=== PATIENT | female | born 2000 | race Caucasian/White ===

== ENCOUNTER 2019-08-02 17:21 | Emergency (ER) | payer OTHER ==
[2019-08-02] MEDS ORDERED: ONDANSETRON HCL INJ/PF 4 MG/2 ML SDV IV ONE (17:42)
[2019-08-02] MEDS ORDERED: KETOROLAC TROMETHAMINE INJ/PF 30 MG/1 ML SDV IV ONE (17:42)
[2019-08-02] MEDS ORDERED: ACETAMINOPHEN 325 MG TABLET PO ONE (17:42)
[2019-08-02] MEDS ORDERED: NORMAL SALINE 1000 ML 1,000 ML IV ONE (17:42)
--- NOTE | 2019-08-02 17:44 | ER Document Report ---
ED Medical Screen (RME) - General Chief Complaint: Fever Stated Complaint: FEVER/SORE THROAT Time Seen by Provider: 08/02/19 17:29 Mode of Arrival: Ambulatory Information source: Patient Notes: Patient is an otherwise healthy 19-year-old female presenting to the emergency department with complaints of fever, all over body aches, sore throat and generalized weakness that began last night. Patient denies any abdominal pain, dysuria, urinary frequency, vomiting or diarrhea. Patient tachycardic in super track with a heart rate of 128, she is also febrile. She was upgraded from an ROSALIA for to an ROSALIA 3 and moved to a main side bed. Exam: Heart sounds S1-S2 present with no ectopy noted. Throat erythematous with bilateral tonsillar swelling, uvula midline, no evidence of peritonsillar abscess. Skin pale. I have greeted and performed a rapid initial assessment of this patient. A comprehensive ED assessment and evaluation of the patient, analysis of test results and completion of the medical decision making process will be conducted by additional ED providers. I have specifically instructed the patient or family members with the patient to immediately return to any nursing staff should anything change in the patient's condition or with their chief complaint. This medical record was dictated with voice recognizing software. There may be grammatical, syntax errors that are unintended. Physical Exam - Vital signs Vitals: Temp Pulse Resp BP Pulse Ox 103.0 F H 128 H 22 H 116/57 L 95 08/02/19 17:25 08/02/19 17:25 08/02/19 17:25 08/02/19 17:25 08/02/19 17:25 Course - Vital Signs Vital signs: Temp Pulse Resp BP Pulse Ox 103.0 F H 128 H 22 H 116/57 L 95 08/02/19 17:25 08/02/19 17:25 08/02/19 17:25 08/02/19 17:25 08/02/19 17:25
[2019-08-02 18:30] LABS: ABSOLUTE LYMPHOCYTES (AUTO) 0.9 10^3/uL (0.5-4.7); ABSOLUTE MONOCYTES (AUTO) 1.7 10^3/uL (0.1-1.4); ABSOLUTE NEUT (AUTO) 9.4 10^3/uL (1.7-8.2); BASOPHILS % (AUTO) 0.3 % (0-2); HEMATOCRIT 41.2 % (36.0-47.0); HEMOGLOBIN 14.1 g/dL (12.0-15.5); LYMPHOCYTES % (AUTO) 7.2 % (13-45); MEAN CORPUSCULAR HEMOGLOBIN 29.8 pg (27.0-33.4); MEAN CORPUSCULAR HGB CONC 34.2 g/dL (32.0-36.0); MEAN CORPUSCULAR VOLUME 87 fl (80-97); MONOCYTES % (AUTO) 14.4 % (3-13); PLATELET COUNT 187 10^3/uL (150-450); RED BLOOD COUNT 4.73 10^6/uL (3.72-5.28); SEGMENTED NEUTROPHILS % (AUTO) 78.1 % (42-78); TOTAL CELLS COUNTED % (AUTO) 100 %; WHITE BLOOD COUNT 12.1 10^3/uL (4.0-10.5)
[2019-08-02] MEDS ORDERED: DEXAMETHASONE SOD PHOS INJ 10 MG/1 ML VIAL IV ONE (18:34)
[2019-08-02] MEDS ORDERED: CEFTRIAXONE 1 GM/D5W RTU 1 GM/50 ML RTUPB IV ONE (18:35)
--- NOTE | 2019-08-02 18:44 | ER Document Report ---
ED General - General Chief Complaint: Fever Stated Complaint: FEVER/SORE THROAT Time Seen by Provider: 08/02/19 17:29 Mode of Arrival: Ambulatory Notes: 19 year old female arrives with with sore throat and fever today and swollen glands. No known sick contacts. No rash. No stiff neck. - HPI Onset/Duration: Sudden Quality of pain: Achy - Related Data Allergies/Adverse Reactions: No Known Allergies Allergy (Unverified 08/02/19 17:45) Past Medical History - General Information source: Patient - Social History Smoking Status: Unknown if Ever Smoked Family History: None Patient has suicidal ideation: No Patient has homicidal ideation: No Review of Systems - Review of Systems Constitutional: Fever. denies: No symptoms reported EENT: See HPI, Throat pain, Difficulty swallowing Cardiovascular: No symptoms reported Respiratory: No symptoms reported Gastrointestinal: No symptoms reported Genitourinary: No symptoms reported Female Genitourinary: No symptoms reported Musculoskeletal: No symptoms reported Skin: No symptoms reported Hematologic/Lymphatic: No symptoms reported Neurological/Psychological: No symptoms reported Physical Exam - Vital signs Vitals: Temp Pulse Resp BP Pulse Ox 103.0 F H 128 H 22 H 116/57 L 95 08/02/19 17:25 08/02/19 17:25 08/02/19 17:25 08/02/19 17:25 08/02/19 17:25 Interpretation: Normal - General General appearance: Appears well, Alert - HEENT Head: Normocephalic, Atraumatic Eyes: Normal Pupils: PERRL Pharynx: Erythema. No: Normal, Peritonsillar abscess Neck: Anterior cervical chain, Lymphadenopathy - Respiratory Respiratory status: No respiratory distress Chest status: Nontender Breath sounds: Normal Chest palpation: Normal - Cardiovascular Rhythm: Regular Heart sounds: Normal auscultation Murmur: No - Abdominal Inspection: Normal Distension: No distension Bowel sounds: Normal Tenderness: Nontender Organomegaly: No organomegaly - Back Back: Normal, Nontender - Extremities General upper extremity: Normal inspection, Nontender, Normal color, Normal ROM, Normal temperature General lower extremity: Normal inspection, Nontender, Normal color, Normal ROM, Normal temperature, Normal weight bearing. No: Hudson's sign - Neurological Neuro grossly intact: Yes Cognition: Normal Orientation: AAOx4 [place] Coma Scale Eye Opening: Spontaneous [place] Coma Scale Verbal: Oriented [place] Coma Scale Motor: Obeys Commands [place] Coma Scale Total: 15 Speech: Normal Motor strength normal: LUE, RUE, LLE, RLE Sensory: Normal - Psychological Associated symptoms: Normal affect, Normal mood - Skin Skin Temperature: Warm Skin Moisture: Dry Skin Color: Normal Course - Re-evaluation Re-evalutation: 08/02/19 18:41 MDM 19 year old mildly dry clincally with intact immune system and strep +. Discussed no work tomorrow and she expressed understanding. - Vital Signs Vital signs: Temp Pulse Resp BP Pulse Ox 99.2 F 95 15 106/50 L 97 08/02/19 19:48 08/02/19 19:48 08/02/19 19:48 08/02/19 19:48 08/02/19 19:48 - Laboratory Result Diagrams: 08/02/19 18:11 08/02/19 18:11 Laboratory results interpreted by me: 08/02/19 08/02/19 18:11 18:11 WBC 12.1 H Lymph % (Auto) 7.2 L [place] % (Auto) 14.4 H Absolute Neuts (auto) 9.4 H Absolute Monos (auto) 1.7 H Seg Neutrophils % 78.1 H Sodium 135.7 L Discharge - Discharge Clinical Impression: Streptococcal pharyngitis Condition: Good Disposition: HOME, SELF-CARE Instructions: Acetaminophen, Fever ([facility]), Strep Throat ([facility]) Additional Instructions: No work 08/03. Rest, finish antibiotic. Please return here for any problems or any concerns. Prescriptions: Amoxicillin 1 tab PO TID #30 tab Forms: Return to Work
[2019-08-02 18:50] LABS: ANION GAP 12 (5-19); BLOOD UREA NITROGEN 13 mg/dL (7-20); CARBON DIOXIDE 22 mmol/L (22-30); CHLORIDE 102 mmol/L (98-107); GLUCOSE 97 mg/dL (75-110); POTASSIUM 3.7 mmol/L (3.6-5.0)
[2019-08-02 19:51] VITALS: BP 106/50
== END 2019-08-02 19:48 | disposition home or self-care (01) ==
LOC: ER 17:21
DX: J02.0 Streptococcal pharyngitis (principal); R50.9 Fever, unspecified; R59.9 Enlarged lymph nodes, unspecified; R07.0 Pain in throat; R13.10 Dysphagia, unspecified
CPT/HCPCS: 36415; 87040; 87880; 85025; 80048; J1885; J2405; J7030; J0696; J1100; 96361; 96365; 96375; 99283

== ENCOUNTER 2019-08-06 03:56 | Emergency (ER) | payer OTHER ==
[2019-08-06] MEDS ORDERED: DEXAMETHASONE SOD PHOS INJ 10 MG/1 ML VIAL IM ONE (04:22)
--- NOTE | 2019-08-06 04:30 | ER Document Report ---
HPI - HPI Time Seen by Provider: 08/06/19 04:11 Pain Level: 4 Context: Patient is a 19-year-old female that comes to the emergency department for chief complaint of sore throat. She states that seen about 4 days ago, diagnosed with strep throat based on a swab, placed on amoxicillin and has been taking this. She states that she does not feel better, she still has a sore throat, she still feels chills and sweats. She denies headache or neck stiffness. She denies inability to swallow. She denies abdominal pain. She denies any sick contacts. She denies . - EENT EENT: REPORTS: Sore Throat - REPRODUCTIVE LMP: iud Reproductive: DENIES: : Past Medical History - General Information source: Patient - Social History Smoking Status: Current Some Day Smoker Frequency of alcohol use: None Drug Abuse: None Lives with: Family Family History: None Patient has suicidal ideation: No Patient has homicidal ideation: No - Immunizations Immunizations up to date: Yes Hx Diphtheria, Pertussis, Tetanus Vaccination: Yes Vertical Provider Document - CONSTITUTIONAL General Appearance: WD/WN, No Apparent Distress - INFECTION CONTROL TRAVEL OUTSIDE OF THE [place] IN LAST 30 DAYS: No - HEENT HEENT: Atraumatic, Normocephalic. negative: Normal ENT Exam - Erythema and swelling of the tonsils without exudates or abscess. Normal uvula. Patent airway. Normal ENT exam otherwise - NECK Neck: Other - Bilateral anterior cervical adenopathy - RESPIRATORY Respiratory: Breath Sounds Normal, No Respiratory Distress - CARDIOVASCULAR Cardiovascular: Regular Rate, Regular Rhythm - GI/ABDOMEN Gastrointestinal: Abdomen Soft, Abdomen Non-Tender - BACK Back: Normal Inspection - MUSCULOSKELETAL/EXTREMETIES Musculoskeletal/Extremeties: MAEW, FROM, Non-Tender - NEURO Level of Consciousness: Awake, Alert, Appropriate Motor/Sensory: No Motor Deficit, No Sensory Deficit - DERM Integumentary: Warm, Dry, No Rash Course - Re-evaluation Re-evalutation: Patient's previous CBC showed leukocytosis with elevation of both monocytes and neutrophils. She did have a positive strep. Based on her lack of symptom resolution I do suspect she had mono as well. Able to swallow without difficulty. Nontender abdomen with no obvious splenomegaly. I did discuss testing but this was declined, instead she will be given dexamethasone, extended work release. I discussed details, precautions including related to the spleen, and return precautions at length. Patient and significant other state appreciation and agreement. Stable time of discharge. - Vital Signs Vital signs: Temp Pulse Resp BP Pulse Ox 98.4 F 94 16 115/62 97 08/06/19 04:01 08/06/19 04:01 08/06/19 04:01 08/06/19 04:01 08/06/19 04:01 Discharge - Discharge Clinical Impression: Anterior cervical adenopathy Pharyngitis Qualifiers: Pharyngitis/tonsillitis etiology: unspecified etiology Qualified Code(s): J02.9 - Acute pharyngitis, unspecified Condition: Stable Disposition: HOME, SELF-CARE Additional Instructions: Based on your continued symptoms, previous lab work, and overall exam I suspect you have mononucleosis in addition to the history of you were treated for. Complete the medicine for strep, however he might break out into a rash, this is normal and most resolve with time. Take, or ibuprofen for pain, drink plenty of fluids, symptoms will gradually resolve with time. Please perform precautions in regards to your abdomen, avoid any trauma for the next 2 to 3 weeks because this could cause a spleen rupture. If you develop severe abdominal pain return to the emergency department immediately. Also return if you worsen including difficulty swallowing or breathing, severe headache, neck stiffness, or any other concerning symptoms. Forms: Return to Work
[2019-08-06 04:50] VITALS: BP 115/64
== END 2019-08-06 04:49 | disposition home or self-care (01) ==
LOC: ER 03:56
DX: J02.9 Acute pharyngitis, unspecified (principal); R59.0 Localized enlarged lymph nodes; R68.83 Chills (without fever); R61 Generalized hyperhidrosis; F17.200 Nicotine dependence, unspecified, uncomplicated
CPT/HCPCS: 96372; 99282; J1100